=== PATIENT | male | born 1955 | race Caucasian/White ===

== ENCOUNTER 2021-09-11 01:52 | Observation (INO) ==
[2021-09-11 02:28] LABS: Basophils # 0.1 10*3/uL (0.0-0.2); Basophils % 0.8 % (0.0-0.8); Eosinophils # 0.3 10*3/uL (0.0-0.87); Eosinophils % 4.1 % (0.00-10.9); Hematocrit 42.6 VOL% (42.0-52.0); Hemoglobin 14.7 GM/DL (14.0-18.0); Immature Granulocytes % 0.3 %; Immature Granulocytes Absolute 0.02 #; Lymphocytes # 1.5 10*3/uL (1.4-4.0); Mean Corpuscular HGB Conc 34.5 GM/DL (32-36); Mean Corpuscular Volume 90.1 FL (87-102); Mean Platelet Volume 8.9 FL (9.6-12.0); Monocytes % 9.3 % (1.7-12.7); Neutrophils % 60.5 % (38.7-73.9); Platelet Count 184 T/CUMM (130-400); Red Blood Count 4.73 MC/CUMM (3.8-5.5); Red Cell Distribution Width 12.7 % (9.3-17.3); White Blood Count 6.1 T/CUMM (4-12)
[2021-09-11 02:49] LABS: Albumin 3.8 G/DL (3.4-5.0); Bilirubin,Total 0.5 MG/DL (0.20-1.00); Calcium 8.7 MG/DL (8.5-10.1); Osmolality,Calculated 280.5 MOS/KG (273-304); Potassium 3.7 MMOL/L (3.5-5.1); Total Protein 6.7 G/DL (6.4-8.2)
[2021-09-11] MEDS ORDERED: SODIUM CHLORIDE 0.9% 1,000 ML IV STA (03:46)
[2021-09-11] MEDS ORDERED: GLUCAGON 1 MG VIAL IM PRN (04:46)
[2021-09-11] MEDS ORDERED: DEXTROSE 50% 25 GM/50 ML SYRINGE IV PRN (04:46)
[2021-09-11] MEDS ORDERED: ONDANSETRON 4 MG/2 ML VIAL IV PRN (04:46)
[2021-09-11] MEDS ORDERED: ACETAMINOPHEN 325 MG TABLET PO PRN (04:46)
[2021-09-11] MEDS ORDERED: hydrALAZINE 20 MG/1 ML VIAL IV PRN (04:46)
[2021-09-11] MEDS: SODIUM CHLORIDE 0.9% 1,000 ML IV SCH ×2 (06:05→13:24)
[2021-09-11 08:00] LABS: Risk Ratio 3.4; VLDL Cholesterol 10.6 MG/DL
[2021-09-11] MEDS ORDERED: PANTOPRAZOLE 40 MG TABLET PO SCH (09:00)
[2021-09-11] MEDS ORDERED: MECLIZINE 25 MG TABLET PO ONE (14:52)
[2021-09-11 16:20] VITALS: BP 126/73
[2021-09-11] MEDS ORDERED: ENOXAPARIN 40 MG/0.4 ML SYRINGE SUBCUT SCH (21:00)
[2021-09-11] MEDS ORDERED: ATORVASTATIN 20 MG TABLET PO SCH (21:00)
== END 2021-09-11 17:50 | disposition home or self-care (01) ==
LOC: EDBD → EDUNIT# → N.ED 01:52 → N.EDINP 01:52 → SUATTDRO 04:46 → N.TELES 05:02
PROVIDERS: ADMIT Phlebology; ATTEND Internal Medicine